=== PATIENT | female | born 1970 | race African-American/Black ===

== ENCOUNTER 2017-07-01 18:50 | Emergency (ER) | payer OTHER ==
[~2017-07-01] VITALS: Ht 160 cm; Wt 99.3 kg
--- NOTE | ~2017-07-01 | EKG ---
[place] [address] [facility] [place] [address] ELECTROCARDIOGRAM REPORT Name: JOE MADERA Room #: DEP [facility]#: [id number] Admission: 07/01/17 Attend Phys: Discharge: 07/01/17 Date of : 74 Report #: [id number] THIS REPORT FOR: //name// [facility] ED Test Date: 2017-07-01 Test Time: 19:40:23 Pat Name: JOE MADERA Department: Room: Gender: F [employer] Machine Operator: SUMANTH : 1970 Requested By: Olivia Mojica Order Number: [id number] MD: Shorty Jones Measurements Intervals [place] Rate: 86 P: 41 AR: 160 QRS: 3 QRSD: 89 T: -10 QT: 359 QTc: 430 Interpretive Statements Sinus rhythm Low voltage, precordial leads Borderline T abnormalities, inferior leads Compared to ECG 10/23/2012 04:56:35 Low QRS voltage now present T-wave abnormality now present Sinus tachycardia no longer present Electronically Signed On 07-02-2017 9:19:24 CDT by Shorty Jones [email or web address] <ELECTRONICALLY SIGNED> By: Shorty Jones MD, [facility] 07/02/17 0919 39 39 Shorty Jones MD, [facility] /EPI
[~2017-07-01 18:50] MED LIST: CHLORELLA; CLONIDINE HCL0.2 M2 PO; FLEXERIL PO; FLONASE 0.05%50 MCG NASAL; IBUPROFEN 600600 M1 PO; IBUPROFEN 800800 MG PO; LISINOPRIL10 MG PO; MORINGA; NAPROSYN500 MG PO; NOHOMEMEDICATIONS; NORCO 5-325 TA1 EACH PO; NORFLEX100 MG PO; SENNA-DOCUSATE1 EACH PO; SPIRULINA500 MG PO; ZPAK PO
[2017-07-01 19:25] LABS: URINE BILIRUBIN NEGATIVE (Negative); URINE BLOOD NEGATIVE (Negative); URINE CLARITY CLEAR; URINE COLOR YELLOW; URINE GLUCOSE-RANDOM* NEGATIVE (Negative); URINE KETONES NEGATIVE (Negative); URINE LEUKOCYTES NEGATIVE (Negative); URINE NITRITE NEGATIVE (Negative); URINE PROTEIN (DIPSTICK) NEGATIVE (Negative); URINE UROBILINOGEN 0.2 E.U./dl (0.2-1.0)
[2017-07-01 19:25] LABS: ABSOLUTE NEUTROPHILS 4.2 thou/uL (1.4-8.2); BASOPHILS 0.7 % (0.0-2.0); HEMATOCRIT 33.9 % (37.0-47.0); HEMOGLOBIN 11.2 gm/dL (12.0-15.0); LYMPHOCYTES 33.5 % (24.0-44.0); MCH 29.5 pg (26.0-34.0); MCV 89.4 fL (80.0-100.0); MONOCYTES 7.9 % (1.0-8.0); PLATELET COUNT 254 thou/uL (150-400); POLYS 55.9 % (36.0-66.0); RBC 3.79 mil/uL (4.20-5.00); RDW 12.8 % (10.5-14.5); WBC 7.6 thou/uL (4.0-11.0)
[2017-07-01 19:32] LABS: CREATININE 0.8 mg/dL (0.6-1.0); POTASSIUM 3.6 mmol/L (3.5-5.1)
[2017-07-01 20:33] VITALS: BP 130/83
== END 2017-07-01 20:34 | disposition home or self-care (01) ==
LOC: ER 18:50
PROVIDERS: Physician Assistant
DX: E86.9 Volume depletion, unspecified (principal); J06.9 Acute upper respiratory infection, unspecified